=== PATIENT | male | born 2000 | race Caucasian/White ===

== ENCOUNTER 2020-02-22 13:57 | Emergency (ER) | payer OTHER, SELFPAY ==
[2020-02-22 13:58] VITALS: BP 150/72; PULSE 83; RESP 18; TEMP 36.6; O2SAT 99; BMI 22.0
--- NOTE | 2020-02-22 14:04 | RAD_ITS ---
STUDY: X-RAY - LEFT RADIUS AND ULNA REASON FOR EXAM: Male, 19 years old. 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 COMPARISON: None. FINDINGS: Soft tissue laceration overlying the mid shaft of the ulna. No radiopaque foreign body is seen. Normal visualized radius. Normal visualized ulna. RAD/Forearm 2 Views IMPRESSION: Soft tissue laceration overlying the mid shaft of the ulna. Electronically Signed: Robb Ceballos, at 14:27 EDT , Service support ,
--- NOTE | 2020-02-22 15:37 | ED.VIS.GEN ---
History of Present Illness Chief Complaint: Laceration Informant: Patient Narrative: 18-year-old male presents with laceration to the left forearm. States that he cut it with an angle external grinder tender today. Tetanus is up-to-date. Denies any significant pain. Bleeding controlled. Past Medical History - Allergies and Home Meds Allergies/Adverse Reactions: Allergies No Known Allergies Allergy (Verified 02/22/20 14:00) Primary Care Physician: Severiano Celeste MD [Primary Care Provider] - Past Medical History: None Surgical History: no surgical history Lives: With Family Smoking Status: Never smoker Alcohol: None Drugs: None Review of Systems General: Denies: Chills, Fever, Sweats Eyes: Denies: Visual changes - bilaterally, Diplopia ENT: Denies: Rhinorrhea, Sore throat Cardiovascular: Denies: Chest pain, Palpitations Respiratory: Denies: Dyspnea, Cough, Dyspnea on exertion Gastrointestinal: Denies: Abdominal pain, Nausea, Vomiting, Diarrhea, Melena, Hematochezia Genitourinary: Denies: Dysuria, Hematuria, Frequency Musculoskeletal: Denies: Back pain, Extremity Pain Skin: Reports: Wounds, -. Denies: Rash Neurological: Denies: Headache, Weakness, Numbness Physical Exam Vital Signs/Narrative: Vital Signs Temp Pulse Resp BP Pulse Ox 02/22/20 13:58 97.8 F 83 18 150/72 H 99 Inital Vital Signs reviewed: Yes General: Well nourished, Well developed, No Acute Distress Head: Normocephalic, Atraumatic Eyes: Perrl, EOMI ENT: Moist mucous membranes, No rhinorrhea Neck: Supple, Nontender Cardiovascular: Regular rate, Regular rhythm, No murmurs Respiratory: No distress, CTA bilaterally, Chest nontender Abdomen: Soft, Nontender, Nondistended, Normal bowel sounds Back: Nontender, Normal Inspection Extremities: Nontender, No edema Skin: Normal color, No rash, - - 4 cm linear laceration to the left dorsal forearm. No ligamentous injury. Not actively bleeding. Neurological: Alert, Oriented x3, Cranial nerves II-XII grossly intact, Normal Strength, Normal Sensation Psychological: Normal affect, Normal Mood Diagnostic/Tx/Re-eval Clinical Impression(s) from Imaging Studies Forearm X-Ray 02/22/20 14:04 IMPRESSION: Soft tissue laceration overlying the mid shaft of the ulna. Electronically Signed: Robb Ceballos, at 14:27 EDT , Service support , - Medical Decision Making Appears well and nontoxic. Vital signs within normal limits. X-ray negative for foreign body. The wound was thoroughly explored. No violation of the fascia. No ligamentous injury. Wound was irrigated following local infiltration with lidocaine and epinephrine. Patient had seven 4-0 interrupted Vicryl sutures placed without difficulty. Patient will be placed on Keflex for 5 days. Tetanus up-to-date. Asked to follow-up with primary care in the emergency department in 7 to 10 days for removal. Discharged home in stable condition. Impression: 1. Left forearm laceration -repaired with seven 4-0 Vicryl sutures Procedures - Lacerations No standard instances Length: 1.77 in Depth: Sub Q Shape: Linear Prep: Usman Laceration repair: Lidocaine with epi Number of Sutures/[place]: 7 Suture Information: Vicryl, 4-0 ED Disposition - Plan for ED Patient: Disposition: Home or Assisted Living Instructions: ED Laceration All Closures Prescriptions: Cephalexin [Keflex] 500 mg PO BID #10 cap Prescription Printed Referrals: Severiano Celeste MD [Primary Care Provider] -
[2020-02-22 16:48] VITALS: BP 124/77; PULSE 62; RESP 15; O2SAT 98
== END 2020-02-22 16:50 | disposition home or self-care (01) ==
PROVIDERS: Emergency Provider Emergency Medicine; PCP Family Medicine
DX: S51.812A Laceration without foreign body of left forearm, initial encounter (principal); W45.8XXA Other foreign body or object entering through skin, initial encounter; Y93.9 Activity, unspecified; Y92.9 Unspecified place or not applicable; Y99.9 Unspecified external cause status
CPT/HCPCS: 12002; 73090; 99282

== ENCOUNTER → 2020-03-08 | Outpatient (CLI) | payer OTHER, SELFPAY ==
[2020-03-08 07:02] VITALS: BMI 22.0
== END | disposition home or self-care (01) ==
LOC: LABSPEC 11:39
PROVIDERS: PCP Family Medicine; Referring Provider Physician Assistant; Visit Provider Physician Assistant
DX: S51.812A Laceration without foreign body of left forearm, initial encounter (principal); X58.XXXA Exposure to other specified factors, initial encounter; Y93.9 Activity, unspecified; Y92.9 Unspecified place or not applicable; Y99.9 Unspecified external cause status
CPT/HCPCS: 87070; 87077; 87186; 87205